=== PATIENT | male | born 1955 ===

== ENCOUNTER 2017-08-12 16:05 | Inpatient (IN) ==
[2017-08-12 22:05] LABS: Basophils # 0.1 10*3/uL (0.0-0.2); Basophils % 0.4 % (0.0-0.8); Eosinophils # 0.1 10*3/uL (0.0-0.87); Eosinophils % 0.3 % (0.00-10.9); Hematocrit 40.6 VOL% (42.0-52.0); Hemoglobin 13.7 GM/DL (14.0-18.0); Immature Granulocytes % 0.8 %; Immature Granulocytes Absolute 0.12 #; Lymphocytes # 1.6 10*3/uL (1.4-4.0); Lymphocytes % 10.2 % (21.2-54.2); Mean Corpuscular HGB Conc 33.7 GM/DL (32-36); Mean Corpuscular Hemoglobin 30 PG (27-34); Mean Corpuscular Volume 88.6 FL (87-102); Mean Platelet Volume 10.8 FL (9.6-12.0); Monocytes # 1.1 10*3/uL (0.11-0.8); Monocytes % 6.9 % (1.7-12.7); Neutrophils # 12.4 10*3/uL (1.4-7.4); Neutrophils % 81.4 % (38.7-73.9); Platelet Count 206 T/CUMM (130-400); Red Blood Count 4.58 MC/CUMM (3.8-5.5); Red Cell Distribution Width 13.1 % (9.3-17.3); White Blood Count 15.2 T/CUMM (4-12)
[2017-08-12 22:25] LABS: Albumin 2.7 G/DL (3.4-5.0); Bilirubin,Total 0.8 MG/DL (0.2-1.0); Calcium 8.7 MG/DL (8.5-10.1); Osmolality,Calculated 276.4 MOS/KG (273-304); Total Protein 7.8 G/DL (6.4-8.3)
[2017-08-12] MEDS ORDERED: HYDROmorphone 2 MG/1 ML VIAL IV PRN (23:31)
[2017-08-12] MEDS ORDERED: GLUCAGON 1 MG VIAL IM PRN (23:31)
[2017-08-12] MEDS ORDERED: PROMETHAZINE 25 MG/1 ML VIAL IM PRN (23:31)
[2017-08-12] MEDS ORDERED: MORPHINE 2 MG/1 ML SYRINGE IV PRN (23:31)
[2017-08-12] MEDS ORDERED: ONDANSETRON 4 MG/2 ML VIAL IV PRN (23:31)
[2017-08-12] MEDS ORDERED: DEXTROSE 50% 25 GM/50 ML VIAL IV PRN (23:31)
[2017-08-12] MEDS: SODIUM CHLORIDE 0.45% 1,000 ML IV SCH (23:45)
[2017-08-12] MEDS: PIPERACILLIN/TAZOBACTAM 3,375 MG in SODIUM CHLORIDE 0.9% 100 ML IV SCH (23:49)
[2017-08-13] MEDS: INSULIN REGULAR 100 UNIT/ML SUBCUT SCH ×4 (01:40→18:13)
[2017-08-13] MEDS: PIPERACILLIN/TAZOBACTAM 3,375 MG in SODIUM CHLORIDE 0.9% 100 ML IV SCH ×2 (07:35→15:15)
[2017-08-13] MEDS: SODIUM CHLORIDE 0.45% 1,000 ML IV SCH ×3 (07:47→23:24)
[2017-08-13] MEDS: PANTOPRAZOLE 40 MG VIAL IV SCH (08:05)
[2017-08-13] MEDS ORDERED: POTASSIUM CHLORIDE RIDER 10 MEQ in PREMIX 1 EACH IV PRN (09:17)
[2017-08-13 09:43] LABS: Basophils % 0.3 % (0.0-0.8); Eosinophils % 0.3 % (0.00-10.9); Hematocrit 35.5 VOL% (42.0-52.0); Hemoglobin 12.5 GM/DL (14.0-18.0); Immature Granulocytes % 0.6 %; Immature Granulocytes Absolute 0.09 #; Lymphocytes # 1.4 10*3/uL (1.4-4.0); Lymphocytes % 9.9 % (21.2-54.2); Mean Corpuscular HGB Conc 35.2 GM/DL (32-36); Mean Corpuscular Hemoglobin 31 PG (27-34); Mean Platelet Volume 10.9 FL (9.6-12.0); Monocytes % 7.2 % (1.7-12.7); Neutrophils # 11.5 10*3/uL (1.4-7.4); Neutrophils % 81.7 % (38.7-73.9); Platelet Count 216 T/CUMM (130-400); Red Blood Count 4.08 MC/CUMM (3.8-5.5); Red Cell Distribution Width 13.1 % (9.3-17.3)
[2017-08-13] MEDS ORDERED: ALBUTEROL/IPRATROPIUM 3 ML NEB RESP TX PRN (10:04)
[2017-08-13 10:11] LABS: Calcium 8.3 MG/DL (8.5-10.1); Osmolality,Calculated 276.1 MOS/KG (273-304); Potassium 3.3 MMOL/L (3.5-5.1)
[2017-08-13 10:22] LABS: Magnesium 2.2 MG/DL (1.8-2.4)
[2017-08-13] MEDS ORDERED: TISSUE ADHESIVE 1 EACH APPLICATOR TOP ONE (11:00)
[2017-08-13] MEDS ORDERED: BUPIVACAINE 0.25% 50 ML VIAL ONE (11:01)
[2017-08-13] MEDS ORDERED: MICROFIBRILLAR COLLAGEN POWDER 1 GM CAN TOP ONE (12:55)
[2017-08-13] MEDS ORDERED: PROPOFOL 200 MG/20 ML VIAL IV ONE (14:01)
[2017-08-13] MEDS ORDERED: SEVOFLURANE 1 UNIT/15 MINUTE INH ONE (14:01)
[2017-08-13] MEDS ORDERED: fentaNYL 100 MCG/2 ML VIAL ONE (14:02)
[2017-08-13] MEDS ORDERED: MIDAZOLAM 2 MG/2 ML VIAL ONE (14:02)
[2017-08-13] MEDS ORDERED: KETOROLAC 30 MG/1 ML VIAL ONE (14:02)
[2017-08-13] MEDS ORDERED: ACETAMINOPHEN 1,000 MG/100 ML VIAL IV ONE (14:03)
[2017-08-13] MEDS ORDERED: GLYCOPYRROLATE 0.4 MG/2 ML VIAL ONE (14:03)
[2017-08-13] MEDS ORDERED: ROCURONIUM 100 MG/10 ML VIAL IV ONE (14:03)
[2017-08-13] MEDS ORDERED: NEOSTIGMINE 10 MG/10 ML VIAL ONE (14:03)
[2017-08-13] MEDS ORDERED: NALOXONE 0.4 MG/ML VIAL IV PRN (14:06)
[2017-08-13] MEDS ORDERED: HYDROmorphone PCA 30 MG/30 ML SYRINGE IV ONE (14:07)
[2017-08-13] MEDS: HYDROmorphone PCA 30 MG/30 ML SYRINGE IV SCH (14:11)
[2017-08-13 14:38] LABS: Hematocrit 34.7 VOL% (42.0-52.0); Hemoglobin 11.7 GM/DL (14.0-18.0)
[2017-08-13] MEDS: glipiZIDE 10 MG TABLET PO SCH (18:14)
[2017-08-13] MEDS: SIMVASTATIN 20 MG TABLET PO SCH (21:04)
[2017-08-14] MEDS: INSULIN REGULAR 100 UNIT/ML SUBCUT SCH ×6 (00:04→21:38)
[2017-08-14] MEDS: PIPERACILLIN/TAZOBACTAM 3,375 MG in SODIUM CHLORIDE 0.9% 100 ML IV SCH ×4 (00:06→23:07)
[2017-08-14 05:27] LABS: Basophils % 0.2 % (0.0-0.8); Eosinophils % 0.1 % (0.00-10.9); Hematocrit 33.9 VOL% (42.0-52.0); Hemoglobin 11.3 GM/DL (14.0-18.0); Immature Granulocytes % 0.9 %; Immature Granulocytes Absolute 0.14 #; Lymphocytes # 1.2 10*3/uL (1.4-4.0); Lymphocytes % 7.6 % (21.2-54.2); Mean Corpuscular HGB Conc 33.3 GM/DL (32-36); Mean Corpuscular Hemoglobin 30 PG (27-34); Mean Corpuscular Volume 90.6 FL (87-102); Mean Platelet Volume 11.3 FL (9.6-12.0); Monocytes # 0.9 10*3/uL (0.11-0.8); Monocytes % 5.9 % (1.7-12.7); Neutrophils # 13.3 10*3/uL (1.4-7.4); Neutrophils % 85.3 % (38.7-73.9); Platelet Count 202 T/CUMM (130-400); Red Blood Count 3.74 MC/CUMM (3.8-5.5); White Blood Count 15.6 T/CUMM (4-12)
[2017-08-14 06:06] LABS: Calcium 7.8 MG/DL (8.5-10.1); Osmolality,Calculated 280.2 MOS/KG (273-304)
[2017-08-14] MEDS ORDERED: INSULIN GLARGINE 100 UNIT/ML SUBCUT SCH (08:00)
[2017-08-14] MEDS: CHLORTHALIDONE 25 MG TABLET PO SCH (11:07)
[2017-08-14] MEDS: ASPIRIN EC 81 MG TABLET PO SCH (11:08)
[2017-08-14] MEDS: METOPROLOL SUCCINATE XL 50 MG TABLET PO SCH (11:08)
[2017-08-14] MEDS: glipiZIDE 10 MG TABLET PO SCH ×2 (11:08→18:03)
[2017-08-14] MEDS: PANTOPRAZOLE 40 MG VIAL IV SCH (11:09)
[2017-08-14] MEDS: POLYETHYLENE GLYCOL POWDER 17 GM PACK PO SCH (11:09)
[2017-08-14] MEDS: SODIUM CHLORIDE 0.45% 1,000 ML IV SCH (11:25)
[2017-08-14] MEDS ORDERED: INSULIN REGULAR 100 UNIT/ML ONE (13:03)
[2017-08-14] MEDS: INSULIN GLARGINE 100 UNIT/ML SUBCUT SCH (18:08)
[2017-08-14] MEDS: HYDROmorphone PCA 30 MG/30 ML SYRINGE IV SCH (18:10)
[2017-08-14] MEDS: SIMVASTATIN 20 MG TABLET PO SCH (21:38)
[2017-08-15 05:09] LABS: Basophils % 0.2 % (0.0-0.8); Eosinophils % 0.1 % (0.00-10.9); Hematocrit 28.7 VOL% (42.0-52.0); Hemoglobin 9.8 GM/DL (14.0-18.0); Immature Granulocytes Absolute 0.13 #; Lymphocytes # 1.1 10*3/uL (1.4-4.0); Lymphocytes % 8.2 % (21.2-54.2); Mean Corpuscular HGB Conc 34.1 GM/DL (32-36); Mean Corpuscular Hemoglobin 30 PG (27-34); Mean Corpuscular Volume 88.6 FL (87-102); Mean Platelet Volume 10.9 FL (9.6-12.0); Monocytes % 7.8 % (1.7-12.7); Neutrophils # 10.9 10*3/uL (1.4-7.4); Neutrophils % 82.7 % (38.7-73.9); Platelet Count 191 T/CUMM (130-400); Red Blood Count 3.24 MC/CUMM (3.8-5.5); Red Cell Distribution Width 12.9 % (9.3-17.3); White Blood Count 13.2 T/CUMM (4-12)
[2017-08-15 05:38] LABS: Albumin 2.1 G/DL (3.4-5.0); Bilirubin,Total 0.7 MG/DL (0.2-1.0); Calcium 7.2 MG/DL (8.5-10.1); Osmolality,Calculated 273.2 MOS/KG (273-304); Potassium 3.3 MMOL/L (3.5-5.1); Total Protein 5.9 G/DL (6.4-8.3)
[2017-08-15] MEDS: INSULIN REGULAR 100 UNIT/ML SUBCUT SCH ×4 (09:48→21:00)
[2017-08-15] MEDS: METOPROLOL SUCCINATE XL 50 MG TABLET PO SCH (09:49)
[2017-08-15] MEDS: glipiZIDE 10 MG TABLET PO SCH ×2 (09:49→17:46)
[2017-08-15] MEDS: ASPIRIN EC 81 MG TABLET PO SCH (09:50)
[2017-08-15] MEDS: PIPERACILLIN/TAZOBACTAM 3,375 MG in SODIUM CHLORIDE 0.9% 100 ML IV SCH ×3 (09:51→23:13)
[2017-08-15] MEDS: POLYETHYLENE GLYCOL POWDER 17 GM PACK PO SCH (09:52)
[2017-08-15] MEDS: POTASSIUM CHLORIDE 20 MEQ TABLET PO PRN ×3 (09:52→16:30)
[2017-08-15] MEDS: PANTOPRAZOLE 40 MG VIAL IV SCH (09:53)
[2017-08-15] MEDS: CHLORTHALIDONE 25 MG TABLET PO SCH (09:56)
[2017-08-15] MEDS: INSULIN GLARGINE 100 UNIT/ML SUBCUT SCH (17:49)
[2017-08-15] MEDS: SIMVASTATIN 20 MG TABLET PO SCH (21:00)
[2017-08-16 05:59] LABS: Basophils % 0.4 % (0.0-0.8); Eosinophils # 0.1 10*3/uL (0.0-0.87); Eosinophils % 0.9 % (0.00-10.9); Hematocrit 28.4 VOL% (42.0-52.0); Hemoglobin 9.4 GM/DL (14.0-18.0); Immature Granulocytes % 1.3 %; Immature Granulocytes Absolute 0.14 #; Lymphocytes # 1.2 10*3/uL (1.4-4.0); Lymphocytes % 10.9 % (21.2-54.2); Mean Corpuscular HGB Conc 33.1 GM/DL (32-36); Mean Corpuscular Hemoglobin 30 PG (27-34); Mean Platelet Volume 10.9 FL (9.6-12.0); Monocytes # 0.8 10*3/uL (0.11-0.8); Monocytes % 7.7 % (1.7-12.7); Neutrophils # 8.7 10*3/uL (1.4-7.4); Neutrophils % 78.8 % (38.7-73.9); Platelet Count 191 T/CUMM (130-400); Red Blood Count 3.12 MC/CUMM (3.8-5.5); Red Cell Distribution Width 12.8 % (9.3-17.3)
[2017-08-16] MEDS: INSULIN REGULAR 100 UNIT/ML SUBCUT SCH ×4 (08:15→21:53)
[2017-08-16] MEDS: ASPIRIN EC 81 MG TABLET PO SCH (08:23)
[2017-08-16] MEDS: POTASSIUM CHLORIDE 20 MEQ TABLET PO PRN ×3 (08:23→15:24)
[2017-08-16] MEDS: glipiZIDE 10 MG TABLET PO SCH ×2 (08:24→18:34)
[2017-08-16] MEDS: PANTOPRAZOLE 40 MG VIAL IV SCH (08:26)
[2017-08-16] MEDS: PIPERACILLIN/TAZOBACTAM 3,375 MG in SODIUM CHLORIDE 0.9% 100 ML IV SCH ×3 (08:31→22:58)
[2017-08-16] MEDS: POLYETHYLENE GLYCOL POWDER 17 GM PACK PO SCH (08:32)
[2017-08-16] MEDS: CHLORTHALIDONE 25 MG TABLET PO SCH (08:32)
[2017-08-16] MEDS: METOPROLOL SUCCINATE XL 50 MG TABLET PO SCH (08:32)
[2017-08-16] MEDS: INSULIN GLARGINE 100 UNIT/ML SUBCUT SCH (17:06)
[2017-08-16] MEDS: SIMVASTATIN 20 MG TABLET PO SCH (21:53)
[2017-08-17 06:19] LABS: Basophils % 0.5 % (0.0-0.8); Eosinophils # 0.2 10*3/uL (0.0-0.87); Hematocrit 28.5 VOL% (42.0-52.0); Hemoglobin 9.4 GM/DL (14.0-18.0); Immature Granulocytes % 1.2 %; Lymphocytes # 1.2 10*3/uL (1.4-4.0); Lymphocytes % 14.2 % (21.2-54.2); Mean Corpuscular Hemoglobin 30 PG (27-34); Mean Corpuscular Volume 90.5 FL (87-102); Mean Platelet Volume 10.7 FL (9.6-12.0); Monocytes # 0.7 10*3/uL (0.11-0.8); Monocytes % 8.3 % (1.7-12.7); Neutrophils # 6.4 10*3/uL (1.4-7.4); Neutrophils % 73.8 % (38.7-73.9); Platelet Count 196 T/CUMM (130-400); Red Blood Count 3.15 MC/CUMM (3.8-5.5); Red Cell Distribution Width 12.9 % (9.3-17.3); White Blood Count 8.7 T/CUMM (4-12)
[2017-08-17] MEDS: INSULIN REGULAR 100 UNIT/ML SUBCUT SCH ×2 (08:31→11:40)
[2017-08-17] MEDS: PIPERACILLIN/TAZOBACTAM 3,375 MG in SODIUM CHLORIDE 0.9% 100 ML IV SCH (08:32)
[2017-08-17] MEDS: METOPROLOL SUCCINATE XL 50 MG TABLET PO SCH (08:34)
[2017-08-17] MEDS: ASPIRIN EC 81 MG TABLET PO SCH (08:34)
[2017-08-17] MEDS: CHLORTHALIDONE 25 MG TABLET PO SCH (08:34)
[2017-08-17] MEDS: POLYETHYLENE GLYCOL POWDER 17 GM PACK PO SCH (08:35)
[2017-08-17] MEDS: glipiZIDE 10 MG TABLET PO SCH (08:35)
[2017-08-17] MEDS: PANTOPRAZOLE 40 MG VIAL IV SCH (08:37)
[2017-08-17 11:15] VITALS: BP 115/69
== END 2017-08-17 14:30 | disposition home or self-care (01) | DRG 415 ==
LOC: N.ED 16:05 → N.EDINP 22:12 → N.3E 22:16
PROVIDERS: ADMIT Surgery; ATTEND Surgery
PROC: LAPCHOL (2017-08-13 11:35)

== ENCOUNTER 2021-10-08 21:39 | Inpatient (IN) ==
[2021-10-08] MEDS ORDERED: OCTREOTIDE 100 MCG/ML SYRINGE IV STA (22:22)
[2021-10-08] MEDS ORDERED: ONDANSETRON 4 MG/2 ML VIAL IV STA (22:22)
[2021-10-08] MEDS ORDERED: SODIUM CHLORIDE 0.9% 1,000 ML IV PRN (22:22)
[2021-10-08] MEDS ORDERED: PANTOPRAZOLE INJ 80 MG in SODIUM CHLORIDE 0.9% 100 ML IV STA (22:22)
[2021-10-08 23:09] LABS: Basophils % 0.2 % (0.0-0.8); Eosinophils # 0.1 10*3/uL (0.0-0.87); Eosinophils % 0.6 % (0.00-10.9); Hematocrit 22.4 VOL% (42.0-52.0); Hemoglobin 6.7 GM/DL (14.0-18.0); Immature Granulocytes % 5.7 %; Immature Granulocytes Absolute 0.93 #; Lymphocytes # 3.3 10*3/uL (1.4-4.0); Mean Corpuscular HGB Conc 29.9 GM/DL (32-36); Mean Corpuscular Volume 109.3 FL (87-102); Mean Platelet Volume 12.8 FL (9.6-12.0); Monocytes % 3.6 % (1.7-12.7); NRBC # 0.11 10*3/uL; Neutrophils % 69.9 % (38.7-73.9); Platelet Count 161 T/CUMM (130-400); Red Blood Count 2.05 MC/CUMM (3.8-5.5); Red Cell Distribution Width 21.2 % (9.3-17.3); White Blood Count 16.3 T/CUMM (4-12)
[2021-10-08] MEDS ORDERED: FUROSEMIDE 40 MG/4 ML VIAL ONE (23:21)
[2021-10-08 23:24] LABS: INR 1.6; PT Patient Result 17.2 SECS (10.5-12.0)
[2021-10-08 23:29] LABS: Albumin 1.2 G/DL (3.4-5.0); Bilirubin,Total 2.1 MG/DL (0.20-1.00); CKMB % 4.6 %; Calcium 7.9 MG/DL (8.5-10.1); Osmolality,Calculated 324.5 MOS/KG (273-304); Total Protein 4.1 G/DL (6.4-8.2)
[2021-10-08 23:31] LABS: Potassium 7.5 MMOL/L (3.5-5.1)
[2021-10-08] MEDS ORDERED: INSULIN REGULAR 10 UNIT, CALCIUM GLUCONATE 1,000 MG in DEXTROSE 10% 250 ML IV ONE (23:35)
[2021-10-08] MEDS ORDERED: SODIUM BICARBONATE 50 MEQ/50 ML VIAL IV STA (23:35)
[2021-10-08] MEDS ORDERED: VECURONIUM 10 MG VIAL IV ONE (23:50)
[2021-10-08] MEDS ORDERED: ETOMIDATE 20 MG/10 ML VIAL IV ONE (23:50)
[2021-10-08] MEDS ORDERED: PANTOPRAZOLE 40 MG VIAL IV ONE (23:54)
[2021-10-08] MEDS ORDERED: PANTOPRAZOLE 40 MG VIAL IV STA (23:55)
[2021-10-08] MEDS ORDERED: NOREPINEPHRINE 4 MG/4 ML VIAL IV ONE (23:57)
[2021-10-09] MEDS ORDERED: SODIUM CHLORIDE 0.9% 2,000 ML IV STA (00:03)
[2021-10-09] MEDS: NOREPINEPHRINE 8 MG in SODIUM CHLORIDE 0.9% 242 ML IV PRN ×3 (00:04→16:10)
[2021-10-09] MEDS ORDERED: MIDAZOLAM 100 MG in SODIUM CHLORIDE 0.9% 80 ML IV PRN (00:44)
[2021-10-09] MEDS ORDERED: VECURONIUM 10 MG VIAL IV ONE (00:45)
[2021-10-09] MEDS ORDERED: ETOMIDATE 20 MG/10 ML VIAL IV ONE (00:45)
[2021-10-09] MEDS ORDERED: ONDANSETRON 4 MG/2 ML VIAL IV PRN (02:23)
[2021-10-09] MEDS ORDERED: ALBUTEROL 2.5 MG/3 ML NEB RESP TX PRN (02:23)
[2021-10-09 02:30] LABS: Basophils # 0.1 10*3/uL (0.0-0.2); Basophils % 0.4 % (0.0-0.8); Eosinophils # 0.1 10*3/uL (0.0-0.87); Eosinophils % 0.6 % (0.00-10.9); Hematocrit 28.4 VOL% (42.0-52.0); Hemoglobin 8.8 GM/DL (14.0-18.0); Immature Granulocytes % 8.5 %; Lymphocytes # 2.7 10*3/uL (1.4-4.0); Lymphocytes % 14.2 % (21.2-54.2); Mean Corpuscular Volume 100.7 FL (87-102); Monocytes % 5.9 % (1.7-12.7); NRBC # 0.14 10*3/uL; Neutrophils % 70.4 % (38.7-73.9); Platelet Count 180 T/CUMM (130-400); Red Blood Count 2.82 MC/CUMM (3.8-5.5); Red Cell Distribution Width 19.9 % (9.3-17.3); White Blood Count 18.9 T/CUMM (4-12)
[2021-10-09] MEDS ORDERED: SODIUM CHLORIDE 0.9% 1,000 ML IV SCH (02:30)
[2021-10-09 02:31] LABS: ABG Base Excess -17.3 MMOL/L (-2.5-2.5); ABG HCO3 11.3 MMOL/L (20-26); ABG Oxygen Saturation 99.7 % (95-100); ABG PCO2 25.4 MM HG (35-48); ABG TCO2 9.2 MMOL/L (23-27)
[2021-10-09 02:32] LABS: ABG PH 7.191 (7.35-7.45)
[2021-10-09] MEDS ORDERED: SODIUM BICARBONATE 50 MEQ/50 ML VIAL IV ONE ×2 (02:44→15:29)
[2021-10-09 02:50] LABS: Hypochromia 1+; Microcytosis 1+; Platelet Estimate Adequate
[2021-10-09 02:58] LABS: Albumin 1.3 G/DL (3.4-5.0); Bilirubin,Total 2.3 MG/DL (0.20-1.00); Calcium 7.3 MG/DL (8.5-10.1); Osmolality,Calculated 323.5 MOS/KG (273-304); Total Protein 4.5 G/DL (6.4-8.2)
[2021-10-09 03:00] LABS: Potassium 6.9 MMOL/L (3.5-5.1)
[2021-10-09] MEDS ORDERED: SODIUM ZIRCONIUM CYCLOSILICATE 10 GM PACK PO ONE (03:03)
[2021-10-09] MEDS: SODIUM BICARB INJ 150 MEQ in STERILE WATER INJ 1,000 ML IV SCH ×2 (03:08→14:10)
[2021-10-09 03:10] LABS: Bacteria,Urine Occasional /HPF (Few); Bilirubin,Urine Small mg/dL (Negative); Glucose,Urine (UA) Negative (Negative); Ketones,Urine Negative (Negative); Mucus,Urine Occasional /LPF (Occasional); Nitrite,Urine Negative (Negative); Protein,Urine 30 MG/DL; RBC,Urine 4 /HPF (0-4); Squamous Epithelial Cell,Urine Occasional /HPF (0-10); Urine Appearance Clear (Clear); Urine Color Yellow (Yellow)
[2021-10-09 03:11] LABS: Blood, Urine Small mg/dL (Negative); Urine Urobilinogen 0.2 EU/DL (<2.0)
[2021-10-09] MEDS ORDERED: propofoL 200 MG/20 ML VIAL IV ONE (03:12)
[2021-10-09] MEDS ORDERED: LIDOCAINE 2% 5 ML VIAL ONE (03:12)
[2021-10-09] MEDS ORDERED: ROCURONIUM 50 MG/5 ML VIAL IV ONE (03:12)
[2021-10-09] MEDS ORDERED: ETOMIDATE 40 MG/20 ML VIAL IV ONE (03:12)
[2021-10-09] MEDS ORDERED: GLUCAGON 1 MG VIAL IM PRN (03:15)
[2021-10-09] MEDS: OCTREOTIDE 500 MCG in SODIUM CHLORIDE 0.9% 100 ML IV SCH ×4 (03:18→23:06)
[2021-10-09] MEDS: PANTOPRAZOLE INJ 200 MG in SODIUM CHLORIDE 0.9% 250 ML IV SCH (03:18)
[2021-10-09] MEDS: LACTULOSE 20 GM/30 ML UDCUP PO SCH ×4 (05:21→23:22)
[2021-10-09] MEDS: cefTRIAXone 1,000 MG in SODIUM CHLORIDE 0.9% 100 ML IV SCH (05:21)
[2021-10-09] MEDS: INSULIN LISPRO 100 UNIT/ML SUBCUT SCH ×4 (05:44→23:22)
[2021-10-09 07:54] LABS: ABG Base Excess -12.2 MMOL/L (-2.5-2.5); ABG HCO3 14.8 MMOL/L (20-26); ABG Oxygen Saturation 99.4 % (95-100); ABG PCO2 25.1 MM HG (35-48); ABG PH 7.316 (7.35-7.45); ABG TCO2 11.9 MMOL/L (23-27)
[2021-10-09 08:18] LABS: Hematocrit 27.6 VOL% (42.0-52.0); Hemoglobin 8.9 GM/DL (14.0-18.0)
[2021-10-09 08:39] LABS: Albumin 1.7 G/DL (3.4-5.0); Bilirubin,Total 2.9 MG/DL (0.20-1.00); Calcium 7.5 MG/DL (8.5-10.1); Osmolality,Calculated 323.4 MOS/KG (273-304); Total Protein 5.1 G/DL (6.4-8.2)
[2021-10-09 08:45] LABS: Potassium 7.2 MMOL/L (3.5-5.1)
[2021-10-09] MEDS: INSULIN GLARGINE 100 UNIT/ML SUBCUT SCH (09:30)
[2021-10-09] MEDS: fentaNYL INJ 1,250 MCG in SODIUM CHLORIDE 0.9% 225 ML IV PRN (11:50)
[2021-10-09 14:20] LABS: Hematocrit 27.3 VOL% (42.0-52.0); Hemoglobin 8.8 GM/DL (14.0-18.0)
[2021-10-09 14:40] LABS: Calcium 7.5 MG/DL (8.5-10.1); Osmolality,Calculated 322.5 MOS/KG (273-304)
[2021-10-09] MEDS: SODIUM ZIRCONIUM CYCLOSILICATE 10 GM PACK PO SCH ×2 (14:45→20:36)
[2021-10-09 14:53] LABS: Potassium 7.5 MMOL/L (3.5-5.1)
[2021-10-09] MEDS ORDERED: INSULIN REGULAR 100 UNIT/ML IV ONE (15:29)
[2021-10-09] MEDS ORDERED: CALCIUM GLUCONATE RIDER 1,000 MG/50 ML PREMIX IV ONE (15:29)
[2021-10-09] MEDS ORDERED: NOREPINEPHRINE 16 MG in SODIUM CHLORIDE 0.9% 484 ML IV PRN (15:55)
[2021-10-09] MEDS ORDERED: DEXTROSE 50% 25 GM/50 ML SYRINGE IV ONE (16:00)
[2021-10-09 20:16] LABS: Hematocrit 25.4 VOL% (42.0-52.0); Hemoglobin 8.2 GM/DL (14.0-18.0)
[2021-10-09] MEDS: NOREPINEPHRINE 16 MG in SODIUM CHLORIDE 0.9% 234 ML IV PRN (21:39)
[2021-10-10] MEDS: PANTOPRAZOLE INJ 200 MG in SODIUM CHLORIDE 0.9% 250 ML IV SCH (02:00)
[2021-10-10] MEDS: SODIUM BICARB INJ 150 MEQ in STERILE WATER INJ 1,000 ML IV SCH ×2 (02:00→13:35)
[2021-10-10] MEDS: fentaNYL INJ 1,250 MCG in SODIUM CHLORIDE 0.9% 225 ML IV PRN (02:30)
[2021-10-10] MEDS: cefTRIAXone 1,000 MG in SODIUM CHLORIDE 0.9% 100 ML IV SCH (02:34)
[2021-10-10 03:55] LABS: ABG Base Excess -15.6 MMOL/L (-2.5-2.5); ABG HCO3 12.4 MMOL/L (20-26); ABG Oxygen Saturation 98.5 % (95-100); ABG PCO2 21.7 MM HG (35-48); ABG PH 7.275 (7.35-7.45); ABG TCO2 9.5 MMOL/L (23-27)
[2021-10-10 03:59] LABS: Basophils # 0.1 10*3/uL (0.0-0.2); Basophils % 0.4 % (0.0-0.8); Eosinophils # 0.6 10*3/uL (0.0-0.87); Eosinophils % 2.4 % (0.00-10.9); Hematocrit 25.2 VOL% (42.0-52.0); Immature Granulocytes % 6.6 %; Immature Granulocytes Absolute 1.64 #; Lymphocytes # 3.2 10*3/uL (1.4-4.0); Lymphocytes % 12.7 % (21.2-54.2); Mean Corpuscular HGB Conc 31.7 GM/DL (32-36); Mean Corpuscular Volume 99.6 FL (87-102); Mean Platelet Volume 12.9 FL (9.6-12.0); Monocytes % 6.9 % (1.7-12.7); NRBC # 1.93 10*3/uL; Platelet Count 152 T/CUMM (130-400); Red Blood Count 2.53 MC/CUMM (3.8-5.5); Red Cell Distribution Width 21.2 % (9.3-17.3)
[2021-10-10 04:10] LABS: INR 2.1
[2021-10-10 04:11] LABS: PT Patient Result 22.1 SECS (10.5-12.0)
[2021-10-10 04:18] LABS: Band Neutrophils 3 % (0-10); Eosinophils 1 % (0-10); Lymphocytes 9 % (20-55); Metamyelocytes 4 %; Myelocytes 2 %; Nucleated Red Blood Cells 3 (0-5); Promyelocytes 1 %; Segmented Neutrophils 72 % (50-85); Total Cells Counted 100
[2021-10-10 04:19] LABS: Anisocytosis 1+; Hypochromia Slight; Microcytosis 1+; Polychromasia Slight; Target Cells Slight
[2021-10-10] MEDS: NOREPINEPHRINE 16 MG in SODIUM CHLORIDE 0.9% 234 ML IV PRN ×5 (04:50→19:00)
[2021-10-10] MEDS: LACTULOSE 20 GM/30 ML UDCUP PO SCH ×3 (05:18→18:00)
[2021-10-10] MEDS ORDERED: SODIUM BICARBONATE 50 MEQ/50 ML VIAL IV ONE ×3 (05:27→19:55)
[2021-10-10 05:28] LABS: Alanine Aminotransferase 1903 U/L (16-61); Albumin 1.5 G/DL (3.4-5.0); Alkaline Phosphatase 968 U/L (45-117); Aspartate Amino Transferase > 20000 U/L (0-37); Blood Urea Nitrogen 132 MG/DL (7-18); Carbon Dioxide 11 MMOL/L (21-32); Estimated Glom Filtration Rate 17 ML/MIN; Glucose 107 MG/DL (74-106); Osmolality,Calculated 317.7 MOS/KG (273-304); Sodium 138 MMOL/L (136-145)
[2021-10-10] MEDS ORDERED: INSULIN REGULAR 10 UNIT, CALCIUM GLUCONATE 1,000 MG in DEXTROSE 10% 250 ML IV ONE ×2 (05:43→06:30)
[2021-10-10] MEDS: INSULIN LISPRO 100 UNIT/ML SUBCUT SCH ×3 (05:50→18:00)
[2021-10-10] MEDS ORDERED: PIPERACILLIN/TAZOBACTAM 3,375 MG in SODIUM CHLORIDE 0.9% 100 ML IV SCH (06:00)
[2021-10-10] MEDS: HYDROCORTISONE 100 MG VIAL IV SCH ×2 (06:04→14:15)
[2021-10-10] MEDS: PIPERACILLIN/TAZOBACTAM 3,375 MG in SODIUM CHLORIDE 0.9% 100 ML IV SCH ×2 (06:05→17:45)
[2021-10-10] MEDS: OCTREOTIDE 500 MCG in SODIUM CHLORIDE 0.9% 100 ML IV SCH ×3 (07:25→20:00)
[2021-10-10] MEDS ORDERED: SODIUM CHLORIDE 0.9% 1,000 ML IV SCH (08:00)
[2021-10-10] MEDS ORDERED: VANCOMYCIN INJ 2,000 MG in SODIUM CHLORIDE 0.9% 500 ML IV ONE (09:00)
[2021-10-10] MEDS ORDERED: HEPARIN 10,000 UNIT/10 ML VIAL IV SCH (10:15)
[2021-10-10] MEDS: INSULIN GLARGINE 100 UNIT/ML SUBCUT SCH (10:30)
[2021-10-10] MEDS: SODIUM ZIRCONIUM CYCLOSILICATE 10 GM PACK PO SCH ×3 (10:45→20:34)
[2021-10-10 12:35] LABS: Hepatitis B Core IgM Quant 0.16 Index; Hepatitis B Surface Ag Quant < 0.10 Index; Hepatitis B Surface Ag Result Non-Reactive (NonReactive); Hepatitis C Virus Ab Quant 0.09 Index; Hepatitis C Virus Ab Result Non-Reactive (NonReactive)
[2021-10-10 13:53] LABS: Alanine Aminotransferase 3510 U/L (16-61); Alkaline Phosphatase 1596 U/L (45-117); Aspartate Amino Transferase > 20000 U/L (0-37); Blood Urea Nitrogen 45 MG/DL (7-18); Calcium 7.6 MG/DL (8.5-10.1); Carbon Dioxide 28 MMOL/L (21-32); Estimated Glom Filtration Rate 57 ML/MIN; Glucose 67 MG/DL (74-106); Osmolality,Calculated 279.1 MOS/KG (273-304); Potassium 3.6 MMOL/L (3.5-5.1); Sodium 135 MMOL/L (136-145); Total Protein 6.5 G/DL (6.4-8.2)
[2021-10-10 16:31] LABS: ABG HCO3 8.8 MMOL/L (20-26); ABG PCO2 22.3 MM HG (35-48); ABG PO2 95.7 MM HG (80-95); Hematocrit Heart Surgery 24.7 PERCENT (42-52); Hemoglobin Heart Surgery 7.9 G/DL (14.0-18.0)
[2021-10-10 16:34] LABS: ABG PH 7.115 (7.35-7.45); Glucose Heart Surgery 15 MG/DL (74-106)
[2021-10-10] MEDS: DEXTROSE 10% 250 ML BAG IV PRN ×2 (16:40→16:55)
[2021-10-10 17:00] LABS: Basophils # 0.1 10*3/uL (0.0-0.2); Basophils % 0.5 % (0.0-0.8); Eosinophils # 0.1 10*3/uL (0.0-0.87); Eosinophils % 0.7 % (0.00-10.9); Hematocrit 23.1 VOL% (42.0-52.0); Hemoglobin 6.9 GM/DL (14.0-18.0); Immature Granulocytes % 7.6 %; Immature Granulocytes Absolute 1.39 #; Lymphocytes # 2.5 10*3/uL (1.4-4.0); Lymphocytes % 13.8 % (21.2-54.2); Mean Corpuscular HGB Conc 29.9 GM/DL (32-36); Mean Corpuscular Volume 105.5 FL (87-102); Mean Platelet Volume 12.6 FL (9.6-12.0); Monocytes % 2.6 % (1.7-12.7); NRBC # 5.19 10*3/uL; Neutrophils % 74.8 % (38.7-73.9); Platelet Count 96 T/CUMM (130-400); Red Blood Count 2.19 MC/CUMM (3.8-5.5); Red Cell Distribution Width 22.1 % (9.3-17.3); White Blood Count 18.3 T/CUMM (4-12)
[2021-10-10] MEDS ORDERED: SODIUM CHLORIDE 0.9% 1,000 ML IV PRN (17:13)
[2021-10-10 17:46] LABS: ABG Base Excess -20.3 MMOL/L (-2.5-2.5); ABG HCO3 9.1 MMOL/L (20-26); ABG Oxygen Saturation 94.5 % (95-100); ABG PCO2 28.6 MM HG (35-48); ABG TCO2 8.3 MMOL/L (23-27); Glucose Heart Surgery 116 MG/DL (74-106); Hematocrit Heart Surgery 20.8 PERCENT (42-52); Hemoglobin Heart Surgery 6.6 G/DL (14.0-18.0)
[2021-10-10 17:51] LABS: ABG PH 7.074 (7.35-7.45); Potassium Heart/CVR 7.1 MMOL/L (3.5-5.1)
[2021-10-10 18:00] LABS: Anisocytosis Slight; Band Neutrophils 2 % (0-10); Basophilic Stippling Few; Eosinophils 1 % (0-10); Lymphocytes 16 % (20-55); Nucleated Red Blood Cells 12 (0-5); Promyelocytes 2 %; Segmented Neutrophils 74 % (50-85); Spherocytes Slight; Total Cells Counted 100
[2021-10-10 18:01] LABS: Platelet Estimate Decreased
[2021-10-10 19:17] LABS: Alanine Aminotransferase 2626 U/L (16-61); Albumin 1.1 G/DL (3.4-5.0); Alkaline Phosphatase 1145 U/L (45-117); Blood Urea Nitrogen 98 MG/DL (7-18); Calcium 6.1 MG/DL (8.5-10.1); Carbon Dioxide 8 MMOL/L (21-32); Estimated Glom Filtration Rate 20 ML/MIN; Glucose 168 MG/DL (74-106); Osmolality,Calculated 304.1 MOS/KG (273-304); Sodium 135 MMOL/L (136-145); Total Protein 4.1 G/DL (6.4-8.2)
[2021-10-10 19:18] LABS: Aspartate Amino Transferase > 20000 U/L (0-37)
[2021-10-10 19:20] LABS: Potassium 7.4 MMOL/L (3.5-5.1)
[2021-10-10 20:27] VITALS: BP 102/47
[2021-10-11] MEDS ORDERED: VANCOMYCIN INJ 2,000 MG in SODIUM CHLORIDE 0.9% 500 ML IV PRN (09:00)
== END 2021-10-10 20:40 | disposition expired | DRG 441 ==
LOC: EDUNIT# → EDBD → N.ED 21:39 → N.EDINP 23:03 → N.ICU 10-09 00:30
PROVIDERS: ADMIT Family Medicine; ATTEND Family Medicine